=== PATIENT | female | born 1945 | race Caucasian/White ===

== ENCOUNTER 2023-05-27 05:18 | Inpatient (IN) | payer MEDICARE ==
[~2023-05-27] VITALS: Ht 167.6 cm; Wt 56.3 kg
[~2023-05-27 05:18] MED LIST: ASPIRIN ADULT L81 M1 PO; HYDROCODONE BIT1 T11 PO; HYDRODIURIL25 MG PO
[2023-05-27 05:25] VITALS: BP 160/81
[2023-05-27 05:58] LABS: BASO % 0.1 % (0.0-1.0); EOS % 0.3 % (1.0-4.0); HEMATOCRIT 42.5 % (37.0-47.0); LYMPH # 0.5 10*3/uL (1.3-4.4); LYMPH % 7.1 % (27.0-41.0); MEAN CELL VOLUME 86.9 fl (81.0-99.0); MEAN CORPUSCULAR HGB 29.2 pg (27.0-31.0); MEAN CORPUSCULAR HGB CONC 33.6 g/dl (33.0-37.0); MEAN PLATELET VOLUME 9.1 fl (9.6-12.3); MONO # 0.5 10*3/uL (0.1-1.0); MONO % 6.5 % (3.0-9.0); NEUT # 6.1 10*3/uL (2.3-7.9); NEUT % 84.7 % (47.0-73.0); PLATELET COUNT AUTOMATED 351 10*3/uL (130-400); RED BLOOD COUNT 4.89 10*6/uL (4.10-5.10); RED CELL DISTRI WIDTH 13.2 % (0-14.5); WHITE BLOOD COUNT 7.2 10*3/uL (4.8-10.8)
[2023-05-27 06:06] LABS: CHLORIDE 89 mmol/L (98-107); POTASSIUM 2.9 mmol/L (3.4-5.1)
[2023-05-27 06:07] LABS: BUN < 5 mg/dl (9-23)
[2023-05-27] MEDS ORDERED: POTASSIUM CHLORIDE 20 MEQ TAB PO ONE ×2 (06:10→08:40)
[2023-05-27 06:58] LABS: BILIRUBIN Negative (Negative); BLOOD Trace-Lysed (Negative); CLARITY Clear (Clear); COLOR Yellow (Yellow); GLUCOSE Negative (Negative); KETONE Negative (Negative); LEUKO ESTERASE Trace (Negative); NITRITE Negative (Negative)
[2023-05-27 07:41] LABS: RBC 0-2 rbc/hpf (0-2)
[2023-05-27] MEDS ORDERED: BISACODYL 5 MG TAB PO PRN (08:35)
[2023-05-27] MEDS ORDERED: ACETAMINOPHEN 325 MG TAB PO PRN (08:35)
[2023-05-27] MEDS ORDERED: BISACODYL 10 MG SUPP R PRN (08:35)
[2023-05-27] MEDS ORDERED: Acetaminophen/Hydrocodone 5 MG/325 MG TABLET PO PRN (08:35)
[2023-05-27] MEDS ORDERED: Magnesium Hydroxide 30 ML UDC PO PRN (08:35)
[2023-05-27] MEDS ORDERED: Ondansetron Hydrochloride 4 MG/2 ML VIAL IV PRN (08:35)
[2023-05-27] MEDS ORDERED: ACETAMINOPHEN 650 MG SUPP R PRN (08:35)
[2023-05-27 09:25] VITALS: BP 148/73
[2023-05-27] MEDS ORDERED: Enoxaparin Sodium 40 MG/0.4 ML SYR SC SCH (10:00)
[2023-05-27 16:00] VITALS: BP 144/66
[2023-05-27 20:00] VITALS: BP 154/71
[2023-05-28] VITALS (8 sets, daily range): BP systolic 107–186; BP diastolic 60–95
[2023-05-28 04:56] LABS: CHLORIDE 91 mmol/L (98-107)
[2023-05-28 05:02] LABS: BUN < 5 mg/dl (9-23); POTASSIUM 4.2 mmol/L (3.4-5.1)
[2023-05-28 06:26] LABS: ACT PARTIAL THROMBO TIME 32.5 SECONDS (20.0-32.1)
[2023-05-28 06:56] LABS: VITAMIN D, 25-HYDROXY 8.1 ng/mL (30-100)
[2023-05-28 07:53] LABS: BASO % 0.1 % (0.0-1.0); EOS # 0.1 10*3/uL (0.0-0.4); EOS % 0.8 % (1.0-4.0); HEMATOCRIT 41.2 % (37.0-47.0); LYMPH # 0.6 10*3/uL (1.3-4.4); LYMPH % 8.1 % (27.0-41.0); MEAN CELL VOLUME 86.4 fl (81.0-99.0); MEAN CORPUSCULAR HGB 29.4 pg (27.0-31.0); MEAN PLATELET VOLUME 8.8 fl (9.6-12.3); MONO # 0.6 10*3/uL (0.1-1.0); MONO % 8.1 % (3.0-9.0); NEUT # 6.4 10*3/uL (2.3-7.9); NEUT % 82.5 % (47.0-73.0); PLATELET COUNT AUTOMATED 256 10*3/uL (130-400); RED BLOOD COUNT 4.77 10*6/uL (4.10-5.10); RED CELL DISTRI WIDTH 13.2 % (0-14.5); WHITE BLOOD COUNT 7.8 10*3/uL (4.8-10.8)
[2023-05-28] MEDS ORDERED: SODIUM CHLORIDE 0.9% 1,000 ML IV SCH (09:20)
[2023-05-28] MEDS ORDERED: HYDROGEL WOUND DRESSING T ONE ×2 (10:06→11:00)
[2023-05-28] MEDS ORDERED: FOAM BANDAGE 4X4 T ONE (10:06)
[2023-05-28] MEDS ORDERED: SODIUM CHLORIDE 0.9% 1,000 ML IV ONE ×2 (10:22→17:20)
[2023-05-28] MEDS ORDERED: ceFAZolin sodium/sodium chlor 10 ML IV ONE (10:25)
[2023-05-28] MEDS ORDERED: DEXAMETHASONE SODIUM PHOSP/PRESERVATIVE FREE 10 MG/ML VIAL ONE (10:32)
[2023-05-28] MEDS ORDERED: Ropivacaine Hydrochloride 5 MG/ML 20 ML AMP IJ ONE (10:32)
[2023-05-28] MEDS ORDERED: Midazolam Hydrochloride 2 MG/2 ML VIAL ONE (10:32)
[2023-05-28] MEDS ORDERED: FOAM BANDAGE 6X6 T ONE (11:00)
[2023-05-28] MEDS ORDERED: FOAM BANDAGE 5X5 T ONE (11:00)
[2023-05-28] MEDS ORDERED: TRANEXAMIC ACID IN NACL,ISO-OS 100 ML IV ONE ×2 (11:16→11:20)
[2023-05-28] MEDS ORDERED: ceFAZolin sodium 1 GM in SYRINGE INFUSION 10 ML IV SCH (14:00)
[2023-05-29] VITALS: BP 154/73
[2023-05-29 06:53] LABS: BASO % 0.1 % (0.0-1.0); HEMATOCRIT 40.5 % (37.0-47.0); LYMPH # 0.7 10*3/uL (1.3-4.4); LYMPH % 6.4 % (27.0-41.0); MEAN CELL VOLUME 87.9 fl (81.0-99.0); MEAN CORPUSCULAR HGB 29.5 pg (27.0-31.0); MEAN CORPUSCULAR HGB CONC 33.6 g/dl (33.0-37.0); MEAN PLATELET VOLUME 9.7 fl (9.6-12.3); MONO # 0.9 10*3/uL (0.1-1.0); MONO % 8.4 % (3.0-9.0); NEUT # 9.3 10*3/uL (2.3-7.9); NEUT % 84.6 % (47.0-73.0); PLATELET COUNT AUTOMATED 260 10*3/uL (130-400); RED BLOOD COUNT 4.61 10*6/uL (4.10-5.10); RED CELL DISTRI WIDTH 13.2 % (0-14.5)
[2023-05-29] MEDS ORDERED: CHAIR CUSHION DEVICE ONE (07:13)
[2023-05-29] MEDS ORDERED: HEEL PROTECTOR DEVICE ONE (07:13)
[2023-05-29 08:00] VITALS: BP 162/74
[2023-05-29 08:01] LABS: CHLORIDE 92 mmol/L (98-107); POTASSIUM 3.4 mmol/L (3.4-5.1)
[2023-05-29 08:02] LABS: BUN < 5 mg/dl (9-23)
[2023-05-29] MEDS ORDERED: Cholecalciferol 2,000 UNIT TABLET (50 MCG) PO SCH (10:00)
[2023-05-29] MEDS ORDERED: ASPIRIN ENTERIC COATED 81 MG TAB PO SCH (10:00)
[2023-05-29] MEDS ORDERED: ceFAZolin sodium/sodium chlor 20 ML IV ONE (11:05)
[2023-05-29 12:00] VITALS: BP 129/68
[2023-05-29 16:00] VITALS: BP 139/72
[2023-05-29] MEDS ORDERED: FOAM BANDAGE 1 EACH BANDAGE T ONE (18:05)
[2023-05-29 20:00] VITALS: BP 141/61
[2023-05-30] VITALS: BP 135/61
[2023-05-30 06:11] LABS: BASO % 0.2 % (0.0-1.0); EOS % 0.5 % (1.0-4.0); HEMATOCRIT 36.8 % (37.0-47.0); LYMPH # 0.5 10*3/uL (1.3-4.4); LYMPH % 6.9 % (27.0-41.0); MEAN CELL VOLUME 87.4 fl (81.0-99.0); MEAN CORPUSCULAR HGB 29.5 pg (27.0-31.0); MEAN CORPUSCULAR HGB CONC 33.7 g/dl (33.0-37.0); MEAN PLATELET VOLUME 9.5 fl (9.6-12.3); MONO # 0.5 10*3/uL (0.1-1.0); MONO % 7.2 % (3.0-9.0); NEUT # 5.7 10*3/uL (2.3-7.9); NEUT % 84.9 % (47.0-73.0); PLATELET COUNT AUTOMATED 258 10*3/uL (130-400); RED BLOOD COUNT 4.21 10*6/uL (4.10-5.10); RED CELL DISTRI WIDTH 13.5 % (0-14.5); WHITE BLOOD COUNT 6.7 10*3/uL (4.8-10.8)
[2023-05-30 06:47] LABS: BUN 5 mg/dl (9-23); CHLORIDE 93 mmol/L (98-107); POTASSIUM 3.2 mmol/L (3.4-5.1)
[2023-05-30 08:00] VITALS: BP 163/78
[2023-05-30 12:00] VITALS: BP 154/73
[2023-05-30] MEDS ORDERED: ASPIRIN ADULT L81 M2 PO (12:46)
[2023-05-30] MEDS ORDERED: VITAMIN D350 MCG PO (12:47)
[2023-05-30] MEDS ORDERED: HYDROCODONE-AC1 EAC1 PO (12:47)
== END 2023-05-30 15:20 | DRG 480 ==
LOC: ED 05:18 → 4E 06:38 → EDHOLD 06:38 → 4E 09:19
PROVIDERS: Internal Medicine; Nurse Practitioner Family; Orthopaedic Surgery; Student in an Organized Health Care Education/Training Program; ADMIT Internal Medicine; ATTEND Internal Medicine
PROC: 0QS606Z Reposition Right Upper Femur with Intramedullary Internal Fixation Device, Open Approach (ICD-10-PCS; principal; 2023-05-28)
PROC: 3E0T3BZ Introduction of Anesthetic Agent into Peripheral Nerves and Plexi, Percutaneous Approach (ICD-10-PCS; 2023-05-28)
PROC: 3E0T33Z Introduction of Anti-inflammatory into Peripheral Nerves and Plexi, Percutaneous Approach (ICD-10-PCS; 2023-05-28)
DX: S72.141A Displaced intertrochanteric fracture of right femur, initial encounter for closed fracture (principal); L89.154 Pressure ulcer of sacral region, stage 4; E87.1 Hypo-osmolality and hyponatremia; Z66 Do not resuscitate; W18.39XA Other fall on same level, initial encounter; E87.6 Hypokalemia; M17.11 Unilateral primary osteoarthritis, right knee; R73.9 Hyperglycemia, unspecified; F17.210 Nicotine dependence, cigarettes, uncomplicated; L89.326 Pressure-induced deep tissue damage of left buttock; E87.8 Other disorders of electrolyte and fluid balance, not elsewhere classified; I10 Essential (primary) hypertension; Y93.89 Activity, other specified; Y99.8 Other external cause status; Y92.098 Other place in other non-institutional residence as the place of occurrence of the external cause; Z90.710 Acquired absence of both cervix and uterus; Z79.1 Long term (current) use of non-steroidal anti-inflammatories (NSAID); Z79.899 Other long term (current) drug therapy; Z79.82 Long term (current) use of aspirin; Z51.5 Encounter for palliative care; Z71.6 Tobacco abuse counseling

== ENCOUNTER → 2023-06-12 | Outpatient (CLI) | payer MEDICARE ==
[~2023-06-12] MED LIST changes: +ASPIRIN ADULT L81 M2 PO; +HYDROCODONE-AC1 EAC1 PO; +VITAMIN D350 MCG PO
== END | disposition home or self-care (01) ==
LOC: ORTHO 02:08
PROVIDERS: ATTEND Orthopaedic Surgery
DX: S72.141D Displaced intertrochanteric fracture of right femur, subsequent encounter for closed fracture with routine healing (principal); Z96.641 Presence of right artificial hip joint; X58.XXXD Exposure to other specified factors, subsequent encounter